=== PATIENT | male | born 1940 | race Caucasian/White ===

== ENCOUNTER 2023-05-04 09:43 | Emergency (ER) | payer MEDICARE, BC ==
[2023-05-04 10:23] LABS: #Eosinphils 0.1 10x3/uL (0.0-0.5); #Monocytes 0.6 10x3/uL (0.0-1.1); #Neutrophils 3.8 10x3/uL (1.5-8.4); %Basophils 0.4 % (0.0-2.0); %Lymphocytes 15.8 % (18.0-47.0); %Neutrophils 70.1 % (40.0-75.0); Hemoglobin 14.4 g/dL (13.5-17.5); Mean Corpuscular HGB CONC 33.6 g/dL (32.0-36.0); Mean Corpuscular Hemoglobin 28.3 pg (27.0-33.0); Mean Corpuscular Volume 84.3 fl (81.2-95.1); Mean Platelet Volume 9.4 fl (7.4-10.4); Platelet Count 221 10x3/uL (150-450); RBC Distribution Width 13.9 % (11.5-14.5); Red Blood Cell (RBC) Count 5.09 10x6/uL (4.32-5.72); White Blood Cell (WBC) Count 5.4 10x3/uL (3.5-10.5)
[2023-05-04 10:40] LABS: ALT (SGPT) 16 U/L (8-55); AST (SGOT) 22 U/L (5-34); Albumin 4.2 g/dL (3.4-4.8); Alkaline Phosphatase 55 U/L (40-110); Anion Gap 13 mmol/L (10-20); BUN (Urea Nitrogen) 16 mg/dL (8.4-25.7); Bilirubin, Total 1.5 mg/dL (0.2-1.2); Calc. Creatinine Clearance 0 mL/min (70-130); Carbon Dioxide 23 mmol/L (23-31); Chloride 107 mmol/L (98-107); Estimated GFR 82; Globulin 2.6 g/dL (2.4-3.5); Glucose 83 mg/dL (83-110); Potassium 4.5 mmol/L (3.5-5.1); Protein, Total 6.8 g/dL (5.8-8.1); Sodium 138 mmol/L (136-145)
== END 2023-05-04 11:55 | disposition home or self-care (01) ==
LOC: CSHERS 09:43
DX: I50.9 Heart failure, unspecified (principal)
CPT/HCPCS: 71045; 80053; 83880; 84484; 85025; 93005

== ENCOUNTER 2025-07-07 07:39 | Emergency (ER) | payer MEDICARE, BC | END 2025-07-07 08:50 | disposition home or self-care (01) | LOC: CSHERS 07:39 | DX: M25.572 Pain in left ankle and joints of left foot (principal); R26.89 Other abnormalities of gait and mobility; Z95.0 Presence of cardiac pacemaker; W19.XXXA Unspecified fall, initial encounter; Y93.01 Activity, walking, marching and hiking | CPT/HCPCS: 99283 ==

== ENCOUNTER 2025-09-11 07:12 | Outpatient (CLI) | payer MEDICARE, BC ==
[2025-09-11 10:02] LABS: Estimated GFR - POC 60.0
[2025-09-11] MEDS ORDERED: Iopamidol 300 61% 100 ML VIAL FS ONE (13:59)
== END 2025-09-11 07:13 | disposition home or self-care (01) ==
LOC: CSHCT 07:12
PROVIDERS: ATTEND Internal Medicine
DX: R31.0 Gross hematuria (principal); N20.0 Calculus of kidney
CPT/HCPCS: 36415; 74178; 82565; Q9967

== ENCOUNTER 2025-10-25 11:56 | Emergency (ER) | payer MEDICARE, BC ==
[2025-10-25 12:57] LABS: INR-International Normal Ratio 1.1; PTT 32.8 sec (22.0-33.0); Prothrombin Time 11.9 sec (9.5-12.1)
[2025-10-25 13:02] LABS: ALT (SGPT) 27 U/L (Less than 45); AST (SGOT) 36 U/L (11-34); Albumin 3.5 g/dL (3.1-4.5); Alkaline Phosphatase 48 U/L (40-110); Anion Gap 13 mmol/L (10-20); BUN (Urea Nitrogen) 24 mg/dL (8.4-25.7); Bilirubin, Total 1.5 mg/dL (0.3-1.2); Calc. Creatinine Clearance 0 mL/min (70-130); Calcium 8.5 mg/dL (7.8-10.44); Carbon Dioxide 22 mmol/L (23-31); Chloride 107 mmol/L (98-107); Globulin 2.6 g/dL (2.4-3.5); Glucose 98 mg/dL (83-110); Lipase 16 U/L (8-78); Potassium 4.2 mmol/L (3.5-5.1); Sodium 138 mmol/L (136-145)
[2025-10-25 14:59] LABS: Glucose, Urine (Dipstick) Normal (Negative); Leukocyte Negative (Negative); Protein, Urine (Dipstick) Negative (Neg-Trace); Specific Gravity, Urine 1.015 (1.005-1.030)
[2025-10-25 15:37] LABS: Bacteria/HPF None Seen HPF (None Seen); CAUTI Indications for Culture Pelvic or flank pain; RBC/HPF None Seen HPF (0-3); WBC/HPF None Seen HPF (0-3)
[2025-10-25 15:38] LABS: Urine Culture Reflex No No
== END 2025-10-25 15:57 | disposition short-term general hospital (02) ==
LOC: CSHERS 11:56
DX: S82.861A Displaced Maisonneuve's fracture of right leg, initial encounter for closed fracture (principal); S09.90XA Unspecified injury of head, initial encounter; I10 Essential (primary) hypertension; E03.9 Hypothyroidism, unspecified; W01.0XXA Fall on same level from slipping, tripping and stumbling without subsequent striking against object, initial encounter; Z79.899 Other long term (current) drug therapy
CPT/HCPCS: 70450; 72125; 80053; 81001; 83690; 85610; 85730; 93005